=== PATIENT | male | born 1950 | race Caucasian/White ===

== ENCOUNTER 2017-04-18 03:57 | Observation (INO) | payer MEDICARE, OTHER ==
[~2017-04-18] VITALS: Ht 180.3 cm; Wt 79.0 kg
[~2017-04-18 03:57] MED LIST: ASPIR 8181 MG PO; AUGMENTIN875 MG PO; BACITRACIN28.4 G1 TP; COREG6.25 M1 PO; DIFLUCAN100 MG PO; FENOFIBRATE145 M2 PO; JALYN 0.5-0.41 EACH PO; LOSARTAN POTAS100 MG PO; MULTI-VITAMIN1 EAC3 PO; NORCO 5/325 TAB1 TAB PO; NORCO 5/3251 TA1 PO; PERCOCET 5/3251 TAB PO; PRILOSEC OTC20 M1 PO; SODIUM CHLORIDE20 ML; ZOFRAN ODT4 MG/UDTAB PO
[2017-04-18] MEDS ORDERED: HYDROCHLOROTHIA25 M1 PO (04:09)
[2017-04-18] MEDS ORDERED: LIPITOR10 M1 PO (04:10)
[2017-04-18 04:32] LABS: BASO % 0.7 % (0-2); EOS % 3.4 % (0-7); EOSINOPHIL ABSOLUTE COUNT 0.2 tho/cmm (0.0-0.7); HCT-HEMATOCRIT 40.3 % (36.0-53.5); HGB-HEMOGLOBIN 14.3 gm/dl (13.5-17.0); LYMPH % 34.7 % (20-45); MCH (MEAN CORPUSCULAR HGB) 31.9 pg (28.0-32.0); MCHC MEAN CORPUSCULAR HGB CONC 35.5 % (32.0-36.0); MEAN PLATELET VOLUME 9.6 cmc (9.4-12.4); MONO % 11.3 % (0-12); MONOCYTE ABSOLUTE COUNT 0.6 tho/cmm (0.0-1.2); NEUTROPHIL ABSOLUTE COUNT 2.8 tho/cmm (1.6-8.0); NEUTROPHIL-AUTOMATED 2.8 tho/cmm (1.6-8.0); NEUTROPHILS % 49.9 % (40-80); PLATELET COUNT 212 tho/cmm (150-450); RED BLOOD COUNT 4.48 mil/cmm (4.40-5.70); RED CELL DISTRIBUTION WIDTH 13.2 % (12.4-16.4); WHITE BLOOD COUNT 5.7 tho/cmm (4.0-10.0)
[2017-04-18 04:45] LABS: ALB/GLOB RATIO 1.1 (0.8-2.0); ALBUMIN 3.8 g/dl (3.5-5.0); ALKALINE PHOSPHATASE 70 U/L (33-138); ALT/SGPT 29 U/L (12-78); ANION GAP 13 mmol/L (0-20); AST/SGOT 25 U/L (10-40); BILIRUBIN,TOTAL 0.4 mg/dl (0.0-1.5); BLOOD UREA NITROGEN 20 mg/dl (6-24); CALCIUM 9.2 mg/dl (8.5-10.5); CARBON DIOXIDE-VENOUS 26 mmol/L (22-32); CHLORIDE 107 mmol/l (96-110); CREATININE 0.86 mg/dl (0.60-1.30); GLUCOSE 93 mg/dL (70-110); POTASSIUM 3.5 mmol/L (3.7-5.1); SODIUM 142 mmol/L (135-145); eGFR VALUE FOR BLACK >90 mL/Min
[2017-04-18 04:49] LABS: TSH-THYROID STIMULATING HORM. 3.07 uIU/ml (0.40-3.80)
[2017-04-18] MEDS ORDERED: LOSARTAN-HCTZ1 EAC5 PO (11:42)
[2017-04-18] MEDS ORDERED: CYCLOBENZAPRINE10 M1 PO (11:43)
[2017-04-18] MEDS ORDERED: OMEPRAZOLE20 M3 PO (11:43)
[2017-04-18] MEDS ORDERED: VALACYCLOVIR1000 M1 PO (11:44)
[2017-04-18] MEDS ORDERED: FLOMAX0.4 M1 PO (11:44)
[2017-04-18] MEDS ORDERED: FISH OIL 11000 MG/CA PO (11:45)
[2017-04-19] MEDS ORDERED: TOPROL XL50 M1 PO (12:29)
[2017-04-19] MEDS ORDERED: XARELTO20 M1 PO (12:29)
== END 2017-04-19 13:15 ==
LOC: EDMED 03:57 → EMR2 05:06 → PCUB 05:06
PROVIDERS: Emergency Medicine; Nurse Practitioner Family; ADMIT Internal Medicine
DX: I48.92 Unspecified atrial flutter (principal); I10 Essential (primary) hypertension; E78.5 Hyperlipidemia, unspecified; Z79.899 Other long term (current) drug therapy; Z87.442 Personal history of urinary calculi; Z87.11 Personal history of peptic ulcer disease; Z90.49 Acquired absence of other specified parts of digestive tract
CPT/HCPCS: C8929; J1650; J7030